=== PATIENT | female | born 1955 | race Caucasian/White ===

== ENCOUNTER → 2016-08-20 | Outpatient (CLI) | payer MEDICARE ==
[~2016-08-20] MED LIST: CHEMO; GABA800T75 PO; LOPE2CAP PO; METO10TA65 PO; [UNRECOGNIZED DRUG - CODE] PO
--- NOTE | 2016-08-20 10:56 | DI ---
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 Approximately 60 minutes later 3D PET/CT imaging was performed from the skull base through the mid thighs. The CT images are for attenuation correction purposes only. Findings: No areas of abnormal uptake seen within the brain. Physiologic areas of uptake in the neck. Pulmonary nodules are again seen. Larger and more intense uptake within the left upper lobe at location -785.5 with an SUV max of 13.1. Superior segment right lower lobe area of cavitary mass is also more intense, currently with an SUV max of 12.3, increased from 10. Right upper lobe area of mass with central cavitation is also more metabolically active with an SUV max of 10.7. Right infrahilar area of mass is bulkier with an SUV max of eight compared to 7.9 previously. Left lower lobe region of mass now has an SUV uptake of 10.6 compared to 8.7. There is persistent uptake in the left hilum with new areas of uptake in the medial and anterior left upper lobe. Expected myocardial uptake. Liver uptake is homogeneous without discrete metastasis. Expected genitourinary and bowel regions of uptake. Right anterior omental metastatic nodule is larger, now measuring up to 2.4 cm in diameter with an SUV max of 7.8 compared to 7.3. No new metabolically active masses or lymph nodes seen within the abdomen or pelvis. No areas of abnormal skeletal uptake appreciated. Impression: 1. Worsening pulmonary metastatic disease with increase in size in several of the existing metastatic lesions and increasing metabolic activity along with a few new areas of involvement in the left upper lobe. 2. Slight increase in uptake and enlargement within the right omental metastasis. .
== END ==
LOC: IMA 06:47
PROVIDERS: ATTEND Internal Medicine Hematology & Oncology
DX: C17.8 Malignant neoplasm of overlapping sites of small intestine (principal); C78.6 Secondary malignant neoplasm of retroperitoneum and peritoneum; C78.02 Secondary malignant neoplasm of left lung; C78.01 Secondary malignant neoplasm of right lung